=== PATIENT | female | born 1995 | race Caucasian/White ===

== ENCOUNTER 2022-02-16 21:38 | Emergency (ER) | payer OTHER ==
[2022-02-16 21:46] VITALS: BP 113/71; PULSE 71; RESP 18; TEMP 97.4; BMI 25.0
[2022-02-16] MEDS ORDERED: FAMOTIDINE 20 MG/50 ML IVPB 20 MG/50 ML MG IVPB ONE ×2 (22:27→23:39)
[2022-02-16] MEDS ORDERED: METOCLOPRAMIDE HCL INJECTION 10 MG/2 ML VIAL IVPUSH ONE (22:27)
[2022-02-16] MEDS ORDERED: SODIUM CHLORIDE 0.9% 500 ML INFUS.BAG IV ONE (22:28)
[2022-02-16] MEDS ORDERED: METOCLOPRAMIDE HCL INJECTION 10 MG/2 ML VIAL ONE (23:38)
[2022-02-16 23:58] LABS: BASO % 0.3 % (0-2.0); EOS % 0.2 % (0-4.5); HEMATOCRIT 36.1 % (32.4-45.2); HEMOGLOBIN 12.2 GM/dL (10.7-15.3); LYMPH % 12.6 % (8-40); MCH 28.2 pg (25.7-33.7); MCHC 33.7 g/dl (32.0-36.0); MEAN CELL VOLUME 83.7 fl (80-96); MEAN PLT VOLUME 8.2 fl (7.5-11.1); MONO % 5.2 % (3.8-10.2); NEUT % 81.7 % (42.8-82.8); PLATELET COUNT 323 10^3/uL (134-434); RBC 4.31 M/mm3 (3.60-5.2); RDW 13.2 % (11.6-15.6); WHITE BLOOD COUNT 12.4 K/mm3 (4.0-10.0)
[2022-02-17 00:17] LABS: ALBUMIN 3.7 g/dl (3.4-5.0); CALCIUM 9.4 mg/dL (8.5-10.1)
[2022-02-17 00:18] LABS: BLOOD UREA NITROGEN 8.1 mg/dL (7-18)
[2022-02-17 00:20] LABS: CREATININE 0.6 mg/dL (0.55-1.3)
[2022-02-17 00:22] LABS: BILIRUBIN,TOTAL 0.4 mg/dL (0.2-1)
[2022-02-17 01:00] LABS: EPI CELLS >36 /uL (0-25.1); HYALINE CASTS 3 /uL (0-3.1); URINE APPEARANCE CLOUDY; URINE BACTERIA 4693 /uL (0-1359); URINE BILIRUBIN NEGATIVE (NEGATIVE); URINE COLOR YELLOW; URINE GLUCOSE (UA) NEGATIVE (NEGATIVE); URINE KETONE 1+ (NEGATIVE); URINE LEUK ESTERASE 1+ (NEGATIVE); URINE NITRITE NEGATIVE (NEGATIVE); URINE PROTEIN TRACE (NEGATIVE); URINE RBC 4 /uL (0-23.9); URINE WBC 50 /uL (0-25.8)
[2022-02-17] MEDS ORDERED: CEPHALEXIN MONOHYDRATE 500 MG CAPSULE (UD) PO ONE (01:21)
[2022-02-17] MEDS ORDERED: CEPHALEXIN MONOHYDRATE 500 MG CAPSULE (UD) ONE (02:43)
== END 2022-02-17 02:50 | disposition home or self-care (01) ==
LOC: JER 21:38
PROC: 3E033NZ Introduction of Analgesics, Hypnotics, Sedatives into Peripheral Vein, Percutaneous Approach (ICD-10-PCS; principal; 2022-02-16)
PROC: 3E033GC Introduction of Other Therapeutic Substance into Peripheral Vein, Percutaneous Approach (ICD-10-PCS; 2022-02-16)
DX: O23.41 Unspecified infection of urinary tract in pregnancy, first trimester (principal); R11.2 Nausea with vomiting, unspecified; Z3A.10 10 weeks gestation of pregnancy
CPT/HCPCS: 36415; 76815; 80053; 81003; 83690; 85025; 87086; 99284-25

== ENCOUNTER 2022-09-08 05:10 | Inpatient (IN) | payer OTHER ==
[2022-09-08] MEDS ORDERED: AMPICILLIN SODIUM 2 GM VIAL ONE (06:21)
[2022-09-08] MEDS ORDERED: AMPICILLIN - 2 GM in SODIUM CHLORIDE 100 ML IVPB ONE (06:25)
[2022-09-08 06:51] VITALS: BMI 28.7
[2022-09-08 06:56] LABS: BASO % 0.7 % (0-2.0); EOS % 0.2 % (0-4.5); HEMATOCRIT 34.4 % (32.4-45.2); LYMPH % 19.7 % (8-40); MEAN CELL VOLUME 82.9 fl (80-96); MEAN PLT VOLUME 9.7 fl (7.5-11.1); MONO % 8.6 % (3.8-10.2); NEUT % 70.8 % (42.8-82.8); PLATELET COUNT 282 10^3/uL (134-434); RBC 4.15 M/mm3 (3.60-5.2); RDW 14.1 % (11.6-15.6); WHITE BLOOD COUNT 12.8 K/mm3 (4.0-10.0)
[2022-09-08] MEDS ORDERED: ELECTROLYTE-148 SOLN 1,000 ML IV SCH ×2 (07:15→09:15)
[2022-09-08] MEDS ORDERED: FENTANYL/BUPIVACAINE/NS/PF - PCEA - 50 ML DISP.SYRIN EP ONE (07:19)
[2022-09-08 07:24] LABS: POTASSIUM 4.2 mmol/L (3.5-5.1)
[2022-09-08 07:25] LABS: CALCIUM 9.2 mg/dL (8.5-10.1)
[2022-09-08 07:29] LABS: CREATININE 0.7 mg/dL (0.55-1.3)
[2022-09-08] MEDS ORDERED: FENTANYL CITRATE/PF 50 MCG/ML VIAL ONE (07:33)
[2022-09-08] MEDS ORDERED: NALOXONE HCL 0.4 MG/ML VIAL IVPUSH PRN (07:58)
[2022-09-08] MEDS ORDERED: FENTANYL/BUPIVACAINE/NS/PF - PCEA - 50 ML DISP.SYRIN EP SCH (08:00)
[2022-09-08] MEDS ORDERED: OXYTOCIN 20 UNITS in 0.9% NS 20 UNIT/1,000 ML INFUS.BAG IV ONE (08:04)
[2022-09-08] MEDS ORDERED: WITCH HAZEL 50% (TUCKS) 40 PAD/JAR PAD TP PRN (09:37)
[2022-09-08] MEDS ORDERED: oxyCODONE HCL 5 MG TABLET PO PRN (09:37)
[2022-09-08] MEDS ORDERED: BENZOCAINE 20% 57 GM BOTTLE TP PRN (09:37)
[2022-09-08] MEDS ORDERED: BENZOCAINE 28 GM HEMORRHOIDAL OINTMENT TP PRN (09:37)
[2022-09-08] MEDS ORDERED: ACETAMINOPHEN 325 MG TABLET (FP) PO PRN (09:37)
[2022-09-08] MEDS ORDERED: METHYLERGONOVINE MALEATE 0.2 MG/1 ML AMP IM PRN (09:37)
[2022-09-08] MEDS ORDERED: BISACODYL 10 MG SUPP.RECT RC PRN (09:37)
[2022-09-08] MEDS ORDERED: OXYTOCIN 20 UNITS in 0.9% NS 20 UNIT/1,000 ML INFUS.BAG IV SCH (09:45)
[2022-09-08] MEDS: AMPICILLIN - 1 GM in SODIUM CHLORIDE 100 ML IVPB SCH ×3 (10:15→21:52)
[2022-09-08] MEDS: PRENATAL VITAMINS W/ FOLIC ACID TABLET (FP) PO SCH (11:59)
[2022-09-08 12:26] LABS: HIV INTERPRETATION NEGATIVE (NEGATIVE)
[2022-09-08] MEDS: IBUPROFEN 600 MG TABLET (FP) PO PRN ×2 (14:25→21:50)
[2022-09-09] MEDS: IBUPROFEN 600 MG TABLET (FP) PO PRN ×4 (05:05→21:11)
[2022-09-09 08:09] LABS: BASO % 0.4 % (0-2.0); EOS % 0.3 % (0-4.5); HEMATOCRIT 28.1 % (32.4-45.2); HEMOGLOBIN 9.6 GM/dL (10.7-15.3); LYMPH % 18.6 % (8-40); MCH 28.9 pg (25.7-33.7); MEAN PLT VOLUME 9.5 fl (7.5-11.1); MONO % 8.5 % (3.8-10.2); NEUT % 72.2 % (42.8-82.8); PLATELET COUNT 250 10^3/uL (134-434); WHITE BLOOD COUNT 14.4 K/mm3 (4.0-10.0)
[2022-09-09] MEDS: PRENATAL VITAMINS W/ FOLIC ACID TABLET (FP) PO SCH (09:26)
[2022-09-09] MEDS ORDERED: SENNOSIDES/DOCUSATE COMBO (SENNA PLUS) TABLET (UD) PO PRN (22:00)
[2022-09-10] MEDS: IBUPROFEN 600 MG TABLET (FP) PO PRN (04:58)
[2022-09-10] MEDS: PRENATAL VITAMINS W/ FOLIC ACID TABLET (FP) PO SCH (10:32)
[2022-09-10 14:10] VITALS: BP 114/70; PULSE 84; RESP 20; TEMP 98.7
== END 2022-09-10 12:45 | disposition home or self-care (01) | DRG 807 ==
LOC: JDEL 05:10 → JLDR 06:05 → J3W 11:30
PROVIDERS: ADMIT Obstetrics & Gynecology; ATTEND Obstetrics & Gynecology
PROC: 10E0XZZ Delivery of Products of Conception, External Approach (ICD-10-PCS; principal; 2022-09-08)
PROC: 0W8NXZZ Division of Female Perineum, External Approach (ICD-10-PCS; 2022-09-08)
DX: O24.420 Gestational diabetes mellitus in childbirth, diet controlled (principal); Z3A.38 38 weeks gestation of pregnancy; Z37.0 Single live birth
CPT/HCPCS: 36415; 59025; 80048; 85025; 86780; 86850; 86900; 86901; 87389; C9803-CS; U0003; U0005